=== PATIENT | female | born 1960 | race Caucasian/White ===

== ENCOUNTER 2023-01-03 10:22 | Observation (INO) | payer MEDICARE, OTHER ==
--- NOTE | 2023-01-03 10:37 | ED ---
Chest Pain HPI - General Chief Complaint: Chest Pain Stated Complaint: Chest Pain, AMANDA Time Seen by Provider: 01/03/23 10:29 Source: patient, RN notes reviewed Mode of arrival: wheelchair Limitations: no limitations - History of Present Illness Initial Comments: 62-year-old female presents emergency Department chief complaint chest pain. Patient states that she started chest pain last day or so with increased shortness of breath. Patient states she was admitted proximally one month ago at [facility] in [place] with DVT of her leg, bilateral PEs. Patient states she did have thrombectomy performed in which they asked us to her groin. Patient states that she is on Eliquis has been taken as directed she does have COPD and is oxygen dependent. Patient denies any history of cardiac stents. Denies any nausea vomiting. - Related Data Home Medications Medication Instructions Recorded Confirmed Albuterol Inhaler [Ventolin Hfa 1 - 2 puff INHALATION RT-Q6H PRN 01/03/23 01/03/23 Inhaler] Apixaban [Eliquis] 5 mg PO BID 01/03/23 01/03/23 Budesonide/Formoterol Fumarate 2 puff INHALATION RT-BID 01/03/23 01/03/23 [Symbicort 160-4.5 Mcg Inhaler] Dextroamphetamine/Amphetamine 30 mg PO BID PRN 01/03/23 01/03/23 [Adderall] HYDROcodone/APAP 7.5-325MG [[place] 1 tab PO TID PRN 01/03/23 01/03/23 7.5-325] Losartan [Cozaar] 25 mg PO DAILY 01/03/23 01/03/23 Lurasidone HCl 20 mg PO DAILY 01/03/23 01/03/23 Omeprazole 20 mg PO DAILY 01/03/23 01/03/23 QUEtiapine [SEROquel] 200 mg PO BID 01/03/23 01/03/23 Verapamil HCl [Verapamil ER] 180 mg PO DAILY 01/03/23 01/03/23 Allergies Allergy/AdvReac Type Severity Reaction Status Date / Time ibuprofen [From Motrin] Allergy Rash/Hives Verified 01/03/23 10:54 Review of Systems ROS Statement: Those systems with pertinent positive or pertinent negative responses have been documented in the HPI. ROS Other: All systems not noted in ROS Statement are negative. EKG Findings - EKG Comments: EKG Findings:: EKG performed at 10:38 sinus rhythm rate 67 MS 166 QRS 100 QT/QTC 401/416 inverted T-wave noted in lead 3, Q wave noted, - EKG Results: EKG: interpreted by JONAS Past Medical History Past Medical History: CVA/TIA, Deep Vein Thrombosis (DVT), Myocardial Infarction ([place]), Pulmonary Embolus ([place]) History of Any Multi-Drug Resistant Organisms: None Reported Past Surgical History: Bariatric Surgery, Cholecystectomy Past Psychological History: No Psychological Hx Reported Smoking Status: Never smoker Past Alcohol Use History: None Reported Past Drug Use History: None Reported General Exam Limitations: no limitations General appearance: alert, in no apparent distress Head exam: Present: atraumatic, normocephalic, normal inspection Eye exam: Present: normal appearance, PERRL, EOMI. Absent: scleral icterus, conjunctival injection, periorbital swelling ENT exam: Present: normal exam, mucous membranes moist Neck exam: Present: normal inspection, full ROM. Absent: tenderness, meningismus, lymphadenopathy Respiratory exam: Present: normal lung sounds bilaterally. Absent: respiratory distress, wheezes, rales, rhonchi, stridor Cardiovascular Exam: Present: regular rate, normal rhythm, normal heart sounds. Absent: systolic murmur, diastolic murmur, rubs, gallop, clicks GI/Abdominal exam: Present: soft, normal bowel sounds. Absent: distended, tenderness, guarding, rebound, rigid Neurological exam: Present: alert Course Vital Signs 01/03/23 01/03/23 10:25 10:46 Temperature 98 F Pulse Rate 75 71 Respiratory 16 17 Rate Blood Pressure 114/79 114/88 O2 Sat by Pulse 99 100 Oximetry Chest Pain MDM - MDM Was pt. sent in by a medical professional or institution (, PA, TANK FURNACE OPERATOR, urgent care, hospital, or correction...) When possible be specific @ -[No] Did you speak to anyone other than the patient for history (EMS, parent, family, police, friend...)? What history was obtained from this source @ -[No] Did you review nursing and triage notes (agree or disagree)? Why? @ -[I reviewed and agree with nursing and triage notes] Were old charts reviewed (outside hosp., previous admission, EMS record, old EKG, old radiological studies, urgent care reports/EKG's, correction records)? Report findings @ -[Obtain records from [facility]] Differential Diagnosis (chest pain, altered mental status, abdominal pain women, abdominal pain men, vaginal bleeding, weakness, fever, dyspnea, syncope, headache, dizziness, GI bleed, back pain, seizure, CVA, palpatations, mental health, musculoskeletal)? @ -[Differential Chest Pain: Stable Angina, Unstable Angina, STEMI, NSTEMI Aortic Dissection, Pneumothorax, Musculoskeletal, Esophageal Spasm GERD, Cholecystitis, Pancreatitis, Zoster, this is not meant to be an all-inclusive list. icable] EKG interpreted by me (3pts min.). @ -[As above] X-rays interpreted by me (1pt min.). @ -[Chest x-ray shows COPD changes] CT interpreted by me (1pt min.). @ -[None done] U/S interpreted by me (1pt. min.). @ -[None done] What testing was considered but not performed or refused? (CT, X-rays, U/S, labs)? Why? @ -[None] What meds were considered but not given or refused? Why? @ -[None] Did you discuss the management of the patient with other professionals (professionals i.e. , PA, TANK FURNACE OPERATOR, lab, RT, psych nurse, director social, cargo and container inspector, teacher, commissioned security officer, keycase assembler)? Give summary @ -[Dr. lara for admission given patient's current risk factors, recent pulmonary embolism Was smoking cessation discussed for >3mins.? @ -[No] Was critical care preformed (if so, how long)? @ -[No] Were there social determinants of health that impacted care today? How? (Homelessness, low income, unemployed, alcoholism, drug addiction, transportation, low edu. Level, literacy, decrease access to med. care, fpc, rehab)? @ -[No] Was there de-escalation of care discussed even if they declined (Discuss DNR or withdrawal of care, Hospice)? DNR status @ -[No] What co-morbidities impacted this encounter? (DM, HTN, Smoking, COPD, CAD, Cancer, CVA, ARF, Chemo, Hep., AIDS, mental health diagnosis, sleep apnea, morbid obesity)? @ -[PE, CAD] Was patient admitted / discharged? Hospital course, mention meds given and route, prescriptions, significant lab abnormalities, going to OR and other pertinent info. @ -[Admitted patient be admitted for cardiac rule out. CT was ordered after discussion with hospitalist. Patient is on current Eliquis, has a history of IVC filter and recent thrombectomy] Undiagnosed new problem with uncertain prognosis? @ -[No] Drug Therapy requiring intensive monitoring for toxicity (Heparin, Nitro, Insulin, Cardizem)? @ -[No] Were any procedures done? @ -[No] Diagnosis/symptom? @ -[Chest pain] Acute, or Chronic, or Acute on Chronic? @ -[Acute] Uncomplicated (without systemic symptoms) or Complicated (systemic symptoms)? @ -[complicated Side effects of treatment? @ -[No] Exacerbation, Progression, or Severe Exacerbation? @ -[No] Poses a threat to life or bodily function? How? (Chest pain, [place], [place], pneumonia, PE, COPD, DKA, ARF, appy, cholecystitis, CVA, Diverticulitis, Homicidal, Suicidal, threat to staff... and all critical care pts) @ -[Yes patient has chest pains this for cardiac arrest. Disposition Clinical Impression: Chest pain Disposition: ADMITTED IP TO THIS HOSP Condition: Fair Referrals: None,Stated [Primary Care Provider] - 1-2 days Time of Disposition: 12:12
[2023-01-03 11:07] LABS: Anisocytosis Slight; Basophils % (A) 1 %; Eosinophils # (A) 0.3 k/uL (0-0.7); Eosinophils % (A) 7 %; HCT 33.5 % (34.0-46.0); HGB 10.6 gm/dL (11.4-16.0); Hypochromasia Marked; Lymphocytes # (A) 1.6 k/uL (1.0-4.8); Lymphocytes % (A) 36 %; MCHC 31.6 g/dL (31.0-37.0); MCV 79.3 fL (80.0-100.0); Mean Platelet Volume 7.2; Microcytosis Slight; Monocytes # (A) 0.3 k/uL (0-1.0); Monocytes % (A) 7 %; Neutrophils # (A) 2.2 k/uL (1.3-7.7); Neutrophils % (A) 48 %; Platelet Count 363 k/uL (150-450); RBC 4.23 m/uL (3.80-5.40); RDW 16.3 % (11.5-15.5); WBC 4.6 k/uL (3.8-10.6)
[2023-01-03 11:22] LABS: INR 0.9 (<1.2); Partial Thromboplastin Time 24.5 sec (22.0-30.0); Prothrombin Time 9.7 sec (9.0-12.0)
[2023-01-03 11:31] LABS: ALT 17 U/L (4-34); AST 25 U/L (14-36); African American GFR (CKD) >90 (>60 ml/min/1.73 sqM); Albumin 3.6 g/dL (3.5-5.0); Alkaline Phosphatase 83 U/L (38-126); Anion Gap 8 mmol/L; Blood Urea Nitrogen 9 mg/dL (7-17); Calcium 8.5 mg/dL (8.4-10.2); Carbon Dioxide 25 mmol/L (22-30); Chloride 105 mmol/L (98-107); Glucose 103 mg/dL (74-99); Non-African American GFR(CKD) >90 (>60 ml/min/1.73 sqM); Potassium 4.4 mmol/L (3.5-5.1); Sodium 138 mmol/L (137-145); Total Bilirubin 0.3 mg/dL (0.2-1.3); Total Protein 7.3 g/dL (6.3-8.2)
--- NOTE | 2023-01-03 11:59 | XR ---
EXAMINATION TYPE: XR chest 2V DATE OF EXAM: 01/03/2023 COMPARISON: 11/26/2011 TECHNIQUE: PA and lateral views submitted. HISTORY: Chest pain FINDINGS: The lungs are clear and there is no pneumothorax, pleural effusion, or focal pneumonia. Heart size normal and no overt failure. Osseous structures demonstrate hypertrophic and degenerative changes of the spine. Hyperinflation. Atherosclerotic change aorta. Arthropathy of the shoulder. IVC filter and surgical clips in the abdomen. IMPRESSION: 1. No acute process. Correlate for COPD.
[2023-01-03] MEDS ORDERED: HYDROcodone/APAP 7.5-325MG 1 EACH TAB PO ONE (12:24)
--- NOTE | 2023-01-03 13:02 | CT ---
EXAMINATION TYPE: CT chest angio for PE DATE OF EXAM: 01/03/2023 COMPARISON: None HISTORY: SOB, recent PE CT DLP: 298.3 mGycm CONTRAST: CT chest with contrast and 3D reconstruction with MIP imaging is performed with IV Contrast, patient injected with 100 mL of Isovue 370. Contrast-enhanced CT of the chest was performed through the course of the pulmonary arteries with abhijeet g and mediastinal window settings submitted. 3D reconstruction with MIP imaging was also performed. PULMONARY ARTERIES: The pulmonary arteries and their major tributaries are patent. I do not see gume dence for sizable filling defect to suggest pulmonary embolic process. LUNGS: Mild patchy density right lower lobe. Mild bronchial wall thickening and interstitial prominence. Correlate for acute inflammatory process. No evidence for atelectasis. No pulmonary nodule or mass is detected. No pleural effusion. MEDIASTINUM: Thoracic aorta is of normal caliber.The heart is mildly enlarged. Trace pericardial eff usion noted. No evidence for mediastinal mass. No mediastinal lymph nodes greater than 1cm. HILAR STRUCTURES: No evidence for mass. No hilar lymph nodes greater than 1 cm. UPPER ABDOMEN: Partially imaged masses of the upper poles of the kidneys. Right-sided mass appears cy stic however the left-sided mass appears to be intermediate. There Is also a nonspecific lesion of the spleen measuring 1.9 cm. Ultrasound correlation recommended . IMPRESSION: 1. No evidence for Pulmonary embolism at this time. 2.Mild patchy density right lower lobe. Mild bronchial wall thickening and interstitial prominence. Correlate for acute inflammatory process. 3. Abdominal ultrasound recommended as noted above.
[2023-01-03] MEDS ORDERED: NITROGLYCERIN SL TABS 0.4 MG TAB SUBLINGUAL PRN (13:52)
[2023-01-03] MEDS ORDERED: NON FORMULARY DRUG (Dextroamphetamine/Amphetamine [Adderall] 30 MG Tablet) PO PRN (15:38)
[2023-01-03] MEDS ORDERED: ALPRAZolam 0.25 MG TAB PO PRN (15:43)
[2023-01-03] MEDS ORDERED: IPRATROPIUM-ALBUTEROL 3 ML NEB INHALATION PRN (15:44)
[2023-01-03] MEDS: IPRATROPIUM-ALBUTEROL 3 ML NEB INHALATION SCH ×2 (16:35→21:23)
--- NOTE | 2023-01-03 17:54 | HP ---
HISTORY AND PHYSICAL CHIEF COMPLAINT: Shortness of breath and chest pain. HISTORY OF PRESENT ILLNESS: This is a 62-year-old woman with a past medical history of COPD, who was living in [facility], and the patient recently had a pulmonary embolism and thrombectomy. Currently, the patient has moved to [place] because the patient's daughters are staying here. The patient complained of increased shortness of breath and as well as chest pain. The patient had a CT angio, which showed a possible right lower lobe pneumonia, and no evidence of any pulmonary embolism. There is no history of any fever, rigor, or chills at this time. PAST MEDICAL HISTORY: Reviewed includes pulmonary embolism and thrombectomy. Rest of the history and rest of the chart are also reviewed. HOME MEDICATIONS: Verapamil. Doses and rest of the medications are noted. ALLERGIES: Ibuprofen. FAMILY HISTORY: No history of heart disease or strokes in the family. SOCIAL HISTORY: No history of smoking. No history of alcohol intake. REVIEW OF SYSTEMS: Fourteen-point review is negative except as mentioned earlier. PHYSICAL EXAMINATION: VITAL SIGNS: Pulse is 75, blood pressure 114/70, respirations 16. HEENT: Conjunctivae are normal. NECK: No jugular venous distention. CARDIOVASCULAR: S1 and S2 muffled. RESPIRATORY: Breath sounds diminished at the bases. Bilateral scattered rhonchi and crackles. Expiratory wheezing also present. ABDOMEN: Soft and nontender. LEGS: No edema. NERVOUS SYSTEM: Nonfocal. LABORATORY DATA: Reviewed. ASSESSMENT: 1. Chronic obstructive pulmonary disease acute exacerbation. 2. Chest pain, for evaluation. 3. History of pulmonary embolism and thrombectomy. 4. History of deep venous thrombosis. 5. History of bariatric surgery. 6. History of cholecystectomy. RECOMMENDATIONS AND DISCUSSION: In this 62-year-old woman presented with multiple complex medical issues, I recommend to continue the current medications, intensive bronchodilator treatment, and symptomatic treatment. Pulmonary consultation. Empiric antibiotics. Cardiology also consulted. Guarded prognosis. We will rule out cardiac pathology. Further recommendations to follow. See orders for the details. MMODL / IJN: [id number] /
[2023-01-03] MEDS: HYDROcodone/APAP 7.5-325MG 1 EACH TAB PO PRN (18:35)
[2023-01-03] MEDS: methylPREDNISolone SOD SUCCI 125 MG/2 ML VIAL IV SCH (18:36)
--- NOTE | 2023-01-03 20:17 | P.CNPUL ---
History of Present Illness Consult date: 01/03/23 Reason for consult: chest pain History of present illness: 6-year-old female patient presented to the ED because of chest pain. The pain is more like a heaviness across her chest. No radiation. It's a constant pain. Over the past 3 days, the severity of the pain is improved. She also claims to have some shortness of breath. The patient is known to have COPD. she is a lifetime nonsmoker. However, she has worked around smokers. She has been on oxygen for at least 10 years and she utilizes 3-4 L. As mentioned, she has been a lifetime nonsmoker. She claims to have underlying coronary artery disease. She has been maintained on Symbicort on outpatient basis. Approximately a month ago she was admitted to [facility] in [place] with DVT of the lower extremity and pulmonary embolism. The patient performed a thrombectomy of the DVT. The patient was started also on anticoagulation. She was given Eliquis 5 mg twice a day and the patient states that she has been compliant to treatment. She was hemodynamically stable. At this point in time she is on 4 L of Oxymizer nasal cannula with a pulse ox of 99%. Blood work shows edematous count 4.6, hemoglobin of 10.6 and platelet count of 363. Normal coagulation profile. Normal electrolytes. Normal renal function. Troponins are negative. CTA of the chest showed no evidence of any pulmonary embolism. Some vague nonspecific infiltrate seen in the right lung base. She is afebrile. No sputum production. Review of Systems Constitutional: Reports fatigue, Reports weight loss Eyes: denies as per HPI, denies blurred vision, denies bulging eye, denies decreased vision, denies diplopia, denies discharge, denies dry eye, denies irritation, denies itching, denies pain, denies photophobia, denies loss of peripheral vision, denies loss of vision, denies tunnel vision/blind spots Ears: deny: decreased hearing, ear discharge, earache, tinnitus Ears, nose, mouth and throat: Reports as per HPI Breasts: absent: as per HPI, change in shape, gynecomastia, masses, nipple discharge, pain, skin changes, swelling Cardiovascular: Reports as per HPI, Reports chest pain, Reports decreased exercise tolerance Respiratory: Reports dyspnea Genitourinary: Reports as per HPI Menstruation: Reports as per HPI Musculoskeletal: Reports as per HPI Musculoskeletal: absent: ankle pain, ankle stiffness, ankle swelling Integumentary: Reports as per HPI Neurological: Reports as per HPI Psychiatric: Reports as per HPI Hematologic/Lymphatic: Reports as per HPI Allergic/Immunologic: Reports as per HPI Past Medical History Past Medical History: Coronary Artery Disease (CAD), CVA/TIA, Deep Vein Thrombosis (DVT) ([place]), Myocardial Infarction ([place]), Pulmonary Embolus ([place]) History of Any Multi-Drug Resistant Organisms: None Reported Past Surgical History: Bariatric Surgery, Cholecystectomy Past Psychological History: No Psychological Hx Reported Smoking Status: Never smoker Past Alcohol Use History: None Reported Past Drug Use History: None Reported Medications and Allergies Home Medications Medication Instructions Recorded Confirmed Type Albuterol Inhaler [Ventolin Hfa 1 - 2 puff INHALATION RT-Q6H PRN 01/03/23 01/03/23 History Inhaler] Apixaban [Eliquis] 5 mg PO BID 01/03/23 01/03/23 History Budesonide/Formoterol Fumarate 2 puff INHALATION RT-BID 01/03/23 01/03/23 History [Symbicort 160-4.5 Mcg Inhaler] Dextroamphetamine/Amphetamine 30 mg PO BID PRN 01/03/23 01/03/23 History [Adderall] HYDROcodone/APAP 7.5-325MG [[place] 1 tab PO TID PRN 01/03/23 01/03/23 History 7.5-325] Losartan [Cozaar] 25 mg PO DAILY 01/03/23 01/03/23 History Lurasidone HCl 20 mg PO DAILY 01/03/23 01/03/23 History Omeprazole 20 mg PO DAILY 01/03/23 01/03/23 History QUEtiapine [SEROquel] 200 mg PO BID 01/03/23 01/03/23 History Verapamil HCl [Verapamil ER] 180 mg PO DAILY 01/03/23 01/03/23 History Allergies Allergy/AdvReac Type Severity Reaction Status Date / Time ibuprofen [From Motrin] Allergy Rash/Hives Verified 01/03/23 10:54 Physical Exam Vitals: Vital Signs Temp Pulse Resp BP Pulse Ox 01/03/23 17:47 65 16 108/70 100 01/03/23 16:45 72 01/03/23 16:36 72 100 01/03/23 15:06 67 15 102/72 95 01/03/23 13:51 57 L 15 131/97 100 01/03/23 10:46 71 17 114/88 100 01/03/23 10:25 98 F 75 16 114/79 99 Intake and Output 01/03/23 01/03/23 01/03/23 06:59 14:59 22:59 Other: Weight 80.739 kg General appearance: alert, in no apparent distress, currently on oxygen and she is on 2 L nasal cannula Head exam: Present: atraumatic, normocephalic, normal inspection Eye exam: Present: normal appearance, PERRL, EOMI. Absent: scleral icterus, conjunctival injection, periorbital swelling ENT exam: Present: normal exam, mucous membranes moist Neck exam: Present: normal inspection, full ROM. Absent: tenderness, meningismus, lymphadenopathy Respiratory exam: Present: normal lung sounds bilaterally. Absent: respiratory distress, wheezes, rales, rhonchi, stridor Cardiovascular Exam: Present: regular rate, normal rhythm, normal heart sounds. Absent: systolic murmur, diastolic murmur, rubs, gallop, clicks GI/Abdominal exam: Present: soft, normal bowel sounds. Absent: distended, tenderness, guarding, rebound, rigid Neurological exam: Present: alert Results - Laboratory Findings CBC and BMP: 01/03/23 10:46 01/03/23 10:46 PT/INR, D-dimer PT 9.7 sec (9.0-12.0) 01/03/23 10:46 INR 0.9 (<1.2) 01/03/23 10:46 Abnormal lab findings: Abnormal Labs 01/03/23 01/03/23 10:46 10:46 Hgb 10.6 L Hct 33.5 L MCV 79.3 L RDW 16.3 H Glucose 103 H - Diagnostic Findings Chest x-ray: image reviewed CT scan - chest: image reviewed Assessment and Plan Plan: Chest pain, under investigation Recent hospitalization for DVT/pulmonary embolism and the patient is on anticoagulation with Eliquis. The patient undergone thrombectomy of the DVT of the lower extremity. CT angiogram showed no evidence of any pulmonary embolism No specific vague right lower lobe pulmonary infiltration, likely chronic Coronary artery disease History of bariatric surgery current BMI is 24.8, the patient has lost more than 200 pounds in weight following her bariatric surgery and the patient had gastric sleeve done back in 2020 Hypertension Chronic hypoxic respiratory failure maintained on oxygen for more than 10 years, the exact cause is not clear. She claims to have COPD. She is a lifetime nonsmoker Plan Pain is nonspecific, no clear cardiac oh pulmonary cause for her pain at this point in time. Cardiology consultation Obtain a 2-D echocardiogram Continue anticoagulation with Eliquis Oxygen supplementation and titrate FiO2 to maintain saturation above 90% Outpatient PFT We'll continue to follow
[2023-01-03] MEDS: QUEtiapine 200 MG TAB PO SCH (20:56)
[2023-01-03] MEDS: APIXABAN 5 MG TAB PO SCH (20:56)
[2023-01-03] MEDS: SYMBICORT 160-4.5 MCG INHALER INHALATION SCH (21:23)
[2023-01-04] MEDS: methylPREDNISolone SOD SUCCI 125 MG/2 ML VIAL IV SCH ×3 (00:31→12:24)
[2023-01-04] MEDS: HYDROcodone/APAP 7.5-325MG 1 EACH TAB PO PRN ×2 (04:37→12:24)
[2023-01-04 07:09] VITALS: BP 107/73; RESP 16; TEMP 97.9
[2023-01-04] MEDS ORDERED: PANTOPRAZOLE 40 MG TABLET PO SCH (07:30)
--- NOTE | 2023-01-04 08:41 | P.PN ---
Subjective Progress Note Date: 01/04/23 62-year-old female patient presented to the ED because of chest pain. The pain is more like a heaviness across her chest. No radiation. It's a constant pain. Over the past 3 days, the severity of the pain is improved. She also claims to have some shortness of breath. The patient is known to have COPD. she is a lifetime nonsmoker. However, she has worked around smokers. She has been on oxygen for at least 10 years and she utilizes 3-4 L. As mentioned, she has been a lifetime nonsmoker. She claims to have underlying coronary artery disease. She has been maintained on Symbicort on outpatient basis. Approximately a month ago she was admitted to [facility] in [place] with DVT of the lower extremity and pulmonary embolism. The patient performed a thrombectomy of the DVT. The patient was started also on anticoagulation. She was given Eliquis 5 mg twice a day and the patient states that she has been compliant to treatment. She was hemodynamically stable. At this point in time she is on 4 L of Oxymizer nasal cannula with a pulse ox of 99%. Blood work shows edematous count 4.6, hemoglobin of 10.6 and platelet count of 363. Normal coagulation profile. Normal electrolytes. Normal renal function. Troponins are negative. CTA of the chest showed no evidence of any pulmonary embolism. Some vague nonspecific infiltrate seen in the right lung base. She is afebrile. No sputum production. Today's evaluation of 01/04/2023, the patient is comfortable. No significant shortness of breath. Her pain is subsided although there is some background chest wall pain still present. Troponins are negative. The patient remains on anticoagulation. The patient was seen by cardiology and echocardiogram was ordered. Otherwise, she remains on antibiotic coagulation with Eliquis. No other significant events over the past 24 hours. She is on oxygen on 2 L with a pulse ox of 99%. Objective - Vital Signs Vital signs: Vital Signs Temp 97.9 F 01/04/23 07:00 Pulse 71 01/04/23 07:00 Resp 16 01/04/23 07:00 BP 107/73 01/04/23 07:00 Pulse Ox 97 01/04/23 07:00 FiO2 Intake & Output 01/03/23 01/04/23 01/04/23 18:59 06:59 18:59 Weight 80.739 kg Other: Voiding Method Toilet # Voids 1 - Exam General appearance: alert, in no apparent distress, currently on oxygen and she is on 2 L nasal cannula Head exam: Present: atraumatic, normocephalic, normal inspection Eye exam: Present: normal appearance, PERRL, EOMI. Absent: scleral icterus, con junctival injection, periorbital swelling ENT exam: Present: normal exam, mucous membranes moist Neck exam: Present: normal inspection, full ROM. Absent: tenderness, meningismus, lymphadenopathy Respiratory exam: Present: normal lung sounds bilaterally. Absent: respiratory distress, wheezes, rales, rhonchi, stridor Cardiovascular Exam: Present: regular rate, normal rhythm, normal heart sounds. Absent: systolic murmur, diastolic murmur, rubs, gallop, clicks GI/Abdominal exam: Present: soft, normal bowel sounds. Absent: distended, tenderness, guarding, rebound, rigid Neurological exam: Present: alert - Labs CBC & Chem 7: 01/03/23 10:46 01/03/23 10:46 Labs: Abnormal Lab Results - Last 24 Hours (Table) 01/03/23 01/03/23 Range/Units 10:46 10:46 Hgb 10.6 L (11.4-16.0) gm/dL Hct 33.5 L (34.0-46.0) % MCV 79.3 L (80.0-100.0) fL RDW 16.3 H (11.5-15.5) % Glucose 103 H (74-99) mg/dL Assessment and Plan Plan: Chest pain, under investigation, improved clinically and the pain is subsided Recent hospitalization for DVT/pulmonary embolism and the patient is on anticoagulation with Eliquis. The patient undergone thrombectomy of the DVT of the lower extremity. CT angiogram showed no evidence of any pulmonary embolism No specific vague right lower lobe pulmonary infiltration, likely chronic Coronary artery disease History of bariatric surgery current BMI is 24.8, the patient has lost more than 200 pounds in weight following her bariatric surgery and the patient had gastric sleeve done back in 2020 Hypertension Chronic hypoxic respiratory failure maintained on oxygen for more than 10 years, the exact cause is not clear. She claims to have COPD. She is a lifetime nonsmoker Plan Pain is nonspecific, no clear cardiac oh pulmonary cause for her pain at this point in time. Awaiting echocardiogram Cardiology consultation Continue anticoagulation with Eliquis Oxygen supplementation and titrate FiO2 to maintain saturation above 90% Outpatient PFT We'll continue to follow
[2023-01-04] MEDS ORDERED: LURASIDONE 20 MG TAB PO SCH (09:00)
[2023-01-04] MEDS ORDERED: LOSARTAN 25 MG TAB PO SCH (09:00)
[2023-01-04] MEDS ORDERED: NON FORMULARY DRUG (Omeprazole [Omeprazole] 20 MG Capsule.Dr) PO SCH (09:00)
[2023-01-04] MEDS ORDERED: VERAPAMIL SR 180 MG TABLET.ER PO SCH (09:00)
[2023-01-04] MEDS: IPRATROPIUM-ALBUTEROL 3 ML NEB INHALATION SCH ×2 (09:30→12:56)
[2023-01-04] MEDS: SYMBICORT 160-4.5 MCG INHALER INHALATION SCH (09:30)
[2023-01-04] MEDS: APIXABAN 5 MG TAB PO SCH (10:24)
[2023-01-04] MEDS: QUEtiapine 200 MG TAB PO SCH (10:24)
--- NOTE | 2023-01-04 11:06 | CA ---
Transthoracic Echo Report Name: Suki Kurtz Age: 62 Gender: F : 1960 Exam Date: 01/04/2023 09:05 Exam Location: [facility] Ht (in): 71 Wt (lb): 178 Ordering Physician: Sahra Suarez Attending/Referring Phys: [id number], Erick Shovel Logger Enma Espino RDCS Procedure CPT: Indications: LVF Cardiac Hx: Technical Quality: Fair Contrast 1: Total Dose (mL): Contrast 2: Total Dose (mL): MEASUREMENTS (Male / Female) Normal Values 2D ECHO LV Diastolic Diameter PLAX 4.4 cm 4.2 - 5.9 / 3.9 - 5.3 cm LV Systolic Diameter PLAX 2.6 cm IVS Diastolic Thickness 1.4 cm 0.6 - 1.0 / 0.6 - 0.9 cm LVPW Diastolic Thickness 1.4 cm 0.6 - 1.0 / 0.6 - 0.9 cm LV Relative Wall Thickness 0.6 RV Internal Dim ED PLAX 3.9 cm LA Volume 42.8 cm??? 18 - 58 / 22 - 52 cm??? M-MODE Aortic Root Diameter MM 3.3 cm LA Systolic Diameter MM 5.2 cm LA Ao Ratio MM 1.6 AV Cusp Separation MM 2.5 cm DOPPLER AV Peak Velocity 144.0 cm/s AV Peak Gradient 8.3 mmHg AV Mean Velocity 100.1 cm/s AV Mean Gradient 4.5 mmHg AV Velocity Time Integral 30.1 cm LVOT Peak Velocity 136.7 cm/s LVOT Peak Gradient 7.5 mmHg LVOT Velocity Time Integral 27.5 cm MV Area PHT 3.2 cm??? Mitral E Point Velocity 72.1 cm/s Mitral A Point Velocity 85.2 cm/s Mitral E to A Ratio 0.8 MV Deceleration Time 238.4 ms MV E' Velocity 8.0 cm/s Mitral E to MV E' Ratio 9.0 FINDINGS Left Ventricle Moderately increased left ventricular wall thickness. . Presereved LV systolic function. Left ventricular ejection fraction is estimated at 50-55 %. Right Ventricle Mild right ventricular dilatation. Right ventricular systolic pressure within normal limits. Right Atrium Normal right atrial size. Left Atrium Normal left atrial size. Mitral Valve Structurally normal mitral valve. Mild mitral regurgitation. Aortic Valve No aortic valve stenosis or regurgitation. Tricuspid Valve Structurally normal tricuspid valve. Trace to mild tricuspid regurgitation. Pulmonic Valve Trace pulmonic regurgitation. Pericardium No pericardial effusion. Aorta Normal size aortic root and proximal ascending aorta. CONCLUSIONS Normal left LV systolic function Mild mitral regurgitation Previewed by: Flako Jean Baptiste MD Dr. Suresh Tumma MD (Electronically Signed) Final Date: 04 January 2023 11:05
[2023-01-04 11:28] LABS: Chol/HDL Ratio 2.44 Ratio; VLDL Calculation 17.26 mg/dL (5.00-40.00)
[2023-01-04 13:06] VITALS: PULSE 76
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
--- NOTE | 2023-01-05 10:45 | P.DS ---
Providers Date of admission: 01/03/23 12:46 Expected date of discharge: 01/04/23 Attending physician: Abhinav Frederick MD Consults: 01/03/23 13:52 Consult Physician Urgent Consulting Provider: Cortney Lambert Consult Reason/Comments: chest pain Do you want consulting provider notified?: Yes 01/03/23 15:44 Consult Physician Routine Consulting Provider: Sparkle Barajas Consult Reason/Comments: copd Do you want consulting provider notified?: Yes Primary care physician: Stated None Hospital Course: Final diagnosis Chronic obstructive pulmonary disease, acute exacerbation Chest pain, ruled out ACS history of pulmonary embolism and thrombectomy History of DVT History of bariatric surgery History of cholecystectomy GI prophylaxis DVT prophylaxis Full code Discharge disposition Patient is being discharged in a stable condition with guarded prognosis to home. Patient will follow-up with Dr. Wade Cantrell in the outpatient setting upon discharge. Patient is to follow-up with pulmonary as well as scheduled. Total time taken is greater than 35 minutes. Hospital course This is a 62-year-old female who was recently admitted with shortness of breath, COPD exacerbation being closely monitored. Patient continued on IV steroids along with breathing treatments and supplemental oxygen. Patient is moving up here and needs to establish with resources being provided on discharge. Patient also evaluated by pulmonary and will continue current regimen as mentioned below with a prednisone taper. Patient has been cleared by consultations for discharge. Please refer to other consultation notes for further HPI. Currently no reports of chest pain, shortness of breath, or palpitations. Patient is afebrile. No reports of nausea or vomiting and patient is tolerating diet. Patient will be discharged home today. Physical exam: Gen: This is a 62-year-old female who is awake, alert and oriented 3, well- developed, well-nourished HEENT: Head is atraumatic, normocephalic. Pupils equal, round. Sclerae is anicteric. NECK: Supple. No JVD. No lymphadenopathy. No thyromegaly. LUNGS: Diminished breath sounds bilaterally with some scattered rhonchi and faint expiratory wheezing noted. No intercostal retractions. HEART: Regular rate and rhythm. No murmur. ABDOMEN: Soft. Bowel sounds are present. No masses. No tenderness. EXTREMITIES: No pedal edema. No calf tenderness. NEUROLOGICAL: Patient is awake, alert and oriented x3. Cranial nerves 2 through 12 are grossly intact. Please refer to medication reconciliation sheet for a list of medications. The impression and plan of care has been dictated by Marcelle Love, Nurse Practitioner as directed. Dr. Óscar MD I have performed a history and examination and MDM of this patient, discussed the same with the dictator, and agree with the dictator's assessment and plan as written ,documented as a scribe. Based on total visit time, I have performed more than 50% of the visit. Patient Condition at Discharge: Fair Plan - Discharge Summary New Discharge Prescriptions: New predniSONE 10 mg PO DIRECTED #30 tab Ipratropium-Albuterol Nebulize [Duoneb 0.5 mg-3 mg/3 ml Soln] 3 ml INHALATION RT-QID #100 each Ipratropium-Albuterol Nebulize [Duoneb 0.5 mg-3 mg/3 ml Soln] 3 ml INHALATION RT-QID PRN each PRN Reason: Shortness Of Breath Or Wheezing Nitroglycerin Sl Tabs [Nitrostat] 0.4 mg SUBLINGUAL Q5M PRN #20 tab PRN Reason: Chest Pain Continue Verapamil HCl [Verapamil ER] 180 mg PO DAILY Lurasidone HCl 20 mg PO DAILY Budesonide/Formoterol Fumarate [Symbicort 160-4.5 Mcg Inhaler] 2 puff INHALATION RT-BID Apixaban [Eliquis] 5 mg PO BID QUEtiapine [SEROquel] 200 mg PO BID Dextroamphetamine/Amphetamine [Adderall] 30 mg PO BID PRN PRN Reason: adhd Omeprazole 20 mg PO DAILY Losartan [Cozaar] 25 mg PO DAILY Albuterol Inhaler [Ventolin Hfa Inhaler] 1 - 2 puff INHALATION RT-Q6H PRN PRN Reason: Shortness Of Breath HYDROcodone/APAP 7.5-325MG [[place] 7.5-325] 1 tab PO TID PRN PRN Reason: Pain Discharge Medication List Albuterol Inhaler [Ventolin Hfa Inhaler] 1 - 2 puff INHALATION RT-Q6H PRN 01/03/23 [History] Apixaban [Eliquis] 5 mg PO BID 01/03/23 [History] Budesonide/Formoterol Fumarate [Symbicort 160-4.5 Mcg Inhaler] 2 puff INHALATION RT-BID 01/03/23 [History] Dextroamphetamine/Amphetamine [Adderall] 30 mg PO BID PRN 01/03/23 [History] HYDROcodone/APAP 7.5-325MG [[place] 7.5-325] 1 tab PO TID PRN 01/03/23 [History] Losartan [Cozaar] 25 mg PO DAILY 01/03/23 [History] Lurasidone HCl 20 mg PO DAILY 01/03/23 [History] Omeprazole 20 mg PO DAILY 01/03/23 [History] QUEtiapine [SEROquel] 200 mg PO BID 01/03/23 [History] Verapamil HCl [Verapamil ER] 180 mg PO DAILY 01/03/23 [History] Ipratropium-Albuterol Nebulize [Duoneb 0.5 mg-3 mg/3 ml Soln] 3 ml INHALATION RT-QID #100 each 01/04/23 [Rx] Ipratropium-Albuterol Nebulize [Duoneb 0.5 mg-3 mg/3 ml Soln] 3 ml INHALATION RT-QID PRN each 01/04/23 [Rx] Nitroglycerin Sl Tabs [Nitrostat] 0.4 mg SUBLINGUAL Q5M PRN #20 tab 01/04/23 [Rx] predniSONE 10 mg PO DIRECTED #30 tab 01/04/23 [Rx] Follow up Appointment(s)/Referral(s): Dali Ling MD [STAFF PHYSICIAN] - 1 Week Gabriel Nice MD [STAFF PHYSICIAN] - 1 Week Sparkle Barajas MD [STAFF PHYSICIAN] - 1 Week Patient Instructions/Handouts: Chest Pain (DC) Activity/Diet/Wound Care/Special Instructions: Activity Limited until follow-up Follow-up with primary care provider to establish Follow-up pulmonary outpatient Follow-up cardiology outpatient Continue taking medications as prescribed Patient will require nebulizer on discharge to manage COPD and uses treatments of DuoNeb 4 times daily and as needed Discharge/Stand Alone Forms: Who Do I Call?, Community Resources, Area PCPs Discharge Disposition: HOME SELF-CARE
== END 2023-01-04 14:27 | disposition home or self-care (01) ==
LOC: EC 10:22 → 6NMEDSUR 12:46
PROVIDERS: ADMIT Internal Medicine; ATTEND Internal Medicine
DX: J44.1 Chronic obstructive pulmonary disease with (acute) exacerbation (principal); R07.9 Chest pain, unspecified; Z86.711 Personal history of pulmonary embolism; Z86.718 Personal history of other venous thrombosis and embolism; Z98.84 Bariatric surgery status; Z90.49 Acquired absence of other specified parts of digestive tract; I25.2 Old myocardial infarction; Z79.01 Long term (current) use of anticoagulants; Z79.51 Long term (current) use of inhaled steroids; Z79.899 Other long term (current) drug therapy; Z99.81 Dependence on supplemental oxygen; Z88.6 Allergy status to analgesic agent
CPT/HCPCS: 96376; 96374; 36415; 94640 ×4; 94760; 93005; 93306; 97162; 97166; 83880; 80061; 80053; 83735; 84484; 85025; 85610; 85730; 71046; 71275; G0378 ×2; J2930 ×2; Q9967